=== PATIENT | male | born 1955 | race Caucasian/White ===

== ENCOUNTER → 2021-09-03 | Outpatient (CLI) | payer OTHER ==
[~2021-09-03] VITALS: Ht 15.2 cm; Wt 122.5 kg
[~2021-09-03] MED LIST: AMIO200T6 PO; APIX5TAB PO; ASPI-1197 PO; ATOR10 PO; ATOR40TA71 PO; HUM10VIA6 SQ; INVOK100TB PO; METF-446 PO; MULT-660 PO; OMEG300C3 PO; RAMI5CAP66 PO; TOPI25TA48 PO
== END | disposition home or self-care (01) ==
LOC: DTH 10:53
PROVIDERS: ATTEND Surgery
DX: E66.01 Morbid (severe) obesity due to excess calories (principal); G47.33 Obstructive sleep apnea (adult) (pediatric); M19.91 Primary osteoarthritis, unspecified site; E11.9 Type 2 diabetes mellitus without complications; E78.00 Pure hypercholesterolemia, unspecified; K21.9 Gastro-esophageal reflux disease without esophagitis
CPT/HCPCS: 97802

== ENCOUNTER → 2021-10-27 | Outpatient (CLI) | payer OTHER ==
[~2021-10-27] MED LIST changes: -AMIO200T6 PO; +AMIO200T68 PO
== END | disposition home or self-care (01) ==
LOC: DTH 09:27
PROVIDERS: ATTEND Surgery
DX: Z71.3 Dietary counseling and surveillance (principal); G47.33 Obstructive sleep apnea (adult) (pediatric); E78.00 Pure hypercholesterolemia, unspecified; E11.9 Type 2 diabetes mellitus without complications; K21.9 Gastro-esophageal reflux disease without esophagitis; I10 Essential (primary) hypertension; E66.01 Morbid (severe) obesity due to excess calories; Z68.41 Body mass index [BMI] 40.0-44.9, adult
CPT/HCPCS: 97803

== ENCOUNTER 2022-02-16 09:00 | Inpatient (IN) | payer MEDICARE ==
[~2022-02-16] VITALS: Ht 167.6 cm; Wt 103.9 kg
[~2022-02-16 09:00] MED LIST changes: -AMIO200T68 PO; -ATOR10 PO; -ATOR40TA71 PO; -INVOK100TB PO; -OMEG300C3 PO; -RAMI5CAP66 PO; -TOPI25TA48 PO
[2022-02-16 10:28] LABS: BASOPHILS % (AUTO) 0.2 % (0.0-5.0); EOSINOPHILS % (AUTO) 0.9 % (0.0-8.0); HEMATOCRIT 40.6 % (42-54); LYMPHOCYTES % (AUTO) 19.8 % (21.0-51.0); MEAN CORPUSCULAR HEMOGLOBIN 31.2 pg (27.0-33.0); MEAN CORPUSCULAR VOLUME 91.9 fL (79-99); NEUTROPHILS % (AUTO) 66.8 % (40.0-77.0); PLATELET COUNT (AUTO) 191 K/uL (130-400); RED BLOOD CELL COUNT(AUTO) 4.42 MIL/uL (4.50-6.20); RED CELL DISTRIBUTION WIDTH 12.7 % (11.0-15.5); WHITE BLOOD COUNT (AUTO) 6.6 K/uL (4.8-10.8)
[2022-02-16 10:41] LABS: CREATININE 0.9 mg/dL (0.5-1.5); POTASSIUM 4.2 mmol/L (3.5-5.1)
[2022-02-16] MEDS ORDERED: LACTATED RINGERS 1000ML 1,000 ML IV SCH (14:00)
[2022-02-17 10:20] VITALS: BP 158/80
[2022-02-17] MEDS ORDERED: ATOR-2 PO (10:57)
[2022-02-17] MEDS ORDERED: CHOL100034 PO (10:57)
[2022-02-17] MEDS ORDERED: DESV50TA10 PO (10:57)
[2022-02-17] MEDS ORDERED: AMIO200T44 PO (10:57)
[2022-02-17] MEDS ORDERED: KRIL1CAP19 PO (10:57)
[2022-02-17] MEDS ORDERED: METO-391 PO (10:59)
[2022-02-18] VITALS (27 sets, daily range): BP systolic 105–148; BP diastolic 45–75
[2022-02-18] MEDS: CEFOXITIN SODIUM 2 GM VIAL IVP SCH ×3 (06:00→11:48)
[2022-02-18] MEDS ORDERED: 0.9%NACL 1000ML 1,000 ML IV ONE (06:39)
[2022-02-18] MEDS ORDERED: SUCCINYLCHOLINE 200MG/10ML SYR ONE (06:46)
[2022-02-18] MEDS ORDERED: FENTANYL CITRATE PF 50 MCG/1 ML 2ML VIAL ONE (06:46)
[2022-02-18] MEDS ORDERED: ROCURONIUM 10MG/1ML SYR 10 MG/ML ML ONE ×2 (06:46→07:35)
[2022-02-18] MEDS ORDERED: DEXAMETHASONE SOD PHOSPHATE 10MG/ML 1ML VIAL ONE (06:46)
[2022-02-18] MEDS ORDERED: LIDOCAINE PF 100MG/5ML (2%) SYRINGE 5ML ONE (06:46)
[2022-02-18] MEDS ORDERED: PROPOFOL 10 MG/ML 20ML VIAL IV ONE (06:46)
[2022-02-18] MEDS ORDERED: ONDANSETRON 4MG INJ ONE ×2 (06:46→08:58)
[2022-02-18] MEDS ORDERED: MIDAZOLAM HCL 1 MG/ML 2ML VIAL ONE (06:47)
[2022-02-18] MEDS ORDERED: DEXMEDETOMIDINE HCL 200 MCG/2 ML VIAL IV ONE (06:54)
[2022-02-18] MEDS ORDERED: MAGNESIUM SULFATE 1 GM/2 ML VIAL ONE (06:55)
[2022-02-18] MEDS ORDERED: KETAMINE HCL 50MG/ML 10ML VIAL IJ ONE (06:55)
[2022-02-18] MEDS ORDERED: BUPIVACAINE/PF 0.5% 30ML VIAL ONE (06:58)
[2022-02-18] MEDS ORDERED: METHYLENE BLUE 5 MG/ML AMP ONE (06:58)
[2022-02-18] MEDS ORDERED: HEPARIN 5,000 UNIT VIAL ONE (07:03)
[2022-02-18] MEDS ORDERED: GLYCOPYRROLATE 1 MG/5 ML SYRINGE ONE ×2 (07:51→08:59)
[2022-02-18] MEDS ORDERED: ATROPINE 1MG SYG IVP ONE (07:52)
[2022-02-18] MEDS ORDERED: NEOSTIGMINE 5MG/5ML SYR IV ONE (09:00)
[2022-02-18] MEDS ORDERED: 0.9%NACL 10ML VIAL IVP PRN (09:30)
[2022-02-18] MEDS ORDERED: APAP/CODEINE 120/12MG 5ML PO PRN (09:30)
[2022-02-18] MEDS ORDERED: HYDROMORPHONE PCA 10 MG/50 ML 50 ML IV SCH (14:30)
[2022-02-18] MEDS ORDERED: MORPHINE 2 MG SYG IM PRN (17:00)
[2022-02-18] MEDS ORDERED: MEPERIDINE-PF 25 MG/ML SYG IV PRN (17:00)
[2022-02-18] MEDS ORDERED: MORPHINE 4 MG SYG IM PRN (17:00)
[2022-02-18] MEDS ORDERED: PROMETHAZINE HCL 25 MG/ML 1ML AMPULE IM PRN ×3 (17:00)
[2022-02-18] MEDS: METFORMIN HCL 500 MG TABLET PO SCH (17:00)
[2022-02-18] MEDS: METOPROLOL SUCCINATE 50 MG TAB.SR.24H PO SCH (20:19)
[2022-02-18] MEDS: [UNRECOGNIZED DRUG - OTHER] PO SCH (20:20)
[2022-02-18] MEDS: DHA PO SCH (20:20)
[2022-02-18] MEDS: PHOSPHO PO SCH (20:20)
[2022-02-18] MEDS: (Cholecalciferol (Vitamin D3) (Vitamin D3) 25 MCG) PO SCH (20:20)
[2022-02-18] MEDS: FAMOTIDINE 20MG VIAL IV SCH (20:20)
[2022-02-18] MEDS: AST PO SCH (20:20)
[2022-02-18] MEDS: EPA PO SCH (20:20)
[2022-02-18] MEDS: KRILL PO SCH (20:20)
[2022-02-18] MEDS ORDERED: HEPARIN 5,000 UNIT VIAL SQ SCH (21:00)
[2022-02-18] MEDS ORDERED: NON-FORMULARY MEDICATION 1 EACH (Metformin HCl 1,000 MG) PO SCH (21:00)
[2022-02-19 03:50] VITALS: BP 144/74
[2022-02-19 08:02] VITALS: BP 163/78
[2022-02-19] MEDS: PHOSPHO PO SCH (09:00)
[2022-02-19] MEDS ORDERED: ATORVASTATIN 40 MG TABLET PO SCH (09:00)
[2022-02-19] MEDS ORDERED: NON-FORMULARY MEDICATION 1 EACH (Atorvastatin Calcium 80 MG) PO SCH (09:00)
[2022-02-19] MEDS ORDERED: ASPIRIN 81MG CHEW TAB PO SCH (09:00)
[2022-02-19] MEDS: AST PO SCH (09:00)
[2022-02-19] MEDS ORDERED: APIXABAN 5 MG TABLET PO SCH (09:00)
[2022-02-19] MEDS ORDERED: MULTIVITAMIN TABLET PO SCH (09:00)
[2022-02-19] MEDS: [UNRECOGNIZED DRUG - OTHER] PO SCH (09:00)
[2022-02-19] MEDS: (Cholecalciferol (Vitamin D3) (Vitamin D3) 25 MCG) PO SCH (09:00)
[2022-02-19] MEDS: DHA PO SCH (09:00)
[2022-02-19] MEDS ORDERED: DESVENLAFAXINE 50 MG PO SCH (09:00)
[2022-02-19] MEDS ORDERED: NON-FORMULARY MEDICATION 1 EACH (Multivitamin (Multivitamins) 1 EACH) PO SCH (09:00)
[2022-02-19] MEDS ORDERED: AMIODARONE 200 MG TABLET PO SCH (09:00)
[2022-02-19] MEDS: EPA PO SCH (09:00)
[2022-02-19] MEDS: KRILL PO SCH (09:00)
[2022-02-19] MEDS: METOPROLOL SUCCINATE 50 MG TAB.SR.24H PO SCH (09:26)
[2022-02-19] MEDS: METFORMIN HCL 500 MG TABLET PO SCH (09:27)
[2022-02-19] MEDS: FAMOTIDINE 20MG VIAL IV SCH (09:30)
[2022-02-19 11:47] VITALS: BP 143/73
== END 2022-02-19 14:43 | disposition home or self-care (01) | DRG 621 ==
LOC: EDSTATUS 09:00 → DAHIP 02-18 05:55 → 3AH 02-18 10:35
PROVIDERS: ADMIT Surgery; ATTEND Surgery
PROC: 3E0T3BZ Introduction of Anesthetic Agent into Peripheral Nerves and Plexi, Percutaneous Approach (ICD-10-PCS; 2022-02-18)
PROC: 0DB64Z3 Excision of Stomach, Percutaneous Endoscopic Approach, Vertical (ICD-10-PCS; principal; 2022-02-18 07:00)
DX: E66.01 Morbid (severe) obesity due to excess calories (principal); Z68.37 Body mass index [BMI] 37.0-37.9, adult; K66.0 Peritoneal adhesions (postprocedural) (postinfection); Z20.822 Contact with and (suspected) exposure to COVID-19; E78.5 Hyperlipidemia, unspecified; I25.10 Atherosclerotic heart disease of native coronary artery without angina pectoris; E11.9 Type 2 diabetes mellitus without complications; F32.9 Major depressive disorder, single episode, unspecified; G47.30 Sleep apnea, unspecified; I48.91 Unspecified atrial fibrillation; Z86.73 Personal history of transient ischemic attack (TIA), and cerebral infarction without residual deficits
CPT/HCPCS: 36415; 80048; 82948; 85025; 87635; 88307; 93005; 94660; 97039; G0378; J0330; J0461; J0694; J1100; J1170; J1644; J1815; J2001; J2250; J2405; J2704; J2710; J3010; J3475; J3490; J7030; Q9968

== ENCOUNTER → 2023-01-13 | Outpatient (CLI) | payer MEDICARE ==
[~2023-01-13] MED LIST changes: +AMIO200T44 PO; +ATOR-2 PO; +CHOL100034 PO; +DESV50TA10 PO; -HUM10VIA6 SQ; +KRIL1CAP19 PO; +METO-391 PO
== END | disposition home or self-care (01) ==
LOC: RAH 13:40
PROVIDERS: ATTEND Family Medicine
DX: N63.41 Unspecified lump in right breast, subareolar (principal)
CPT/HCPCS: 76641; 77066

== ENCOUNTER → 2023-07-28 | Outpatient (CLI) | payer MEDICARE | END | disposition home or self-care (01) | LOC: RAH 08:51 | PROVIDERS: ATTEND Family Medicine | DX: N18.31 Chronic kidney disease, stage 3a (principal); Z90.49 Acquired absence of other specified parts of digestive tract | CPT/HCPCS: 76700 ==

== ENCOUNTER 2023-09-16 09:23 | Day surgery (SDC) | payer MEDICARE ==
[2023-09-15 10:38] LABS: BASOPHILS # (AUTO) 0.02 K/uL (0.00-0.20); BASOPHILS % (AUTO) 0.3 % (0.0-5.0); EOSINOPHILS # (AUTO) 0.18 K/uL (0.00-0.70); HEMATOCRIT 43.1 % (42-54); IMMATURE GRANULOCYTE ABSOLUTE 0.02 K/uL (0-1); LYMPHOCYTES # (AUTO) 1.2 K/uL (1.0-4.8); LYMPHOCYTES % (AUTO) 20.4 % (21.0-51.0); MEAN CORPUSCULAR HGB CONC 33.2 g/dL (32.0-36.0); MEAN CORPUSCULAR VOLUME 96.4 fL (79-99); MONOCYTES # (AUTO) 0.6 K/uL (0.1-1.0); MONOCYTES % (AUTO) 10.1 % (3.0-13.0); NEUTROPHILS # (AUTO) 3.9 K/uL (1.8-7.7); NEUTROPHILS % (AUTO) 65.9 % (40.0-77.0); PLATELET COUNT (AUTO) 173 K/uL (130-400); RED BLOOD CELL COUNT(AUTO) 4.47 MIL/uL (4.50-6.20); WHITE BLOOD COUNT (AUTO) 5.9 K/uL (4.8-10.8)
[2023-09-15 10:47] LABS: CREATININE 1.1 mg/dL (0.5-1.5)
[2023-09-15 10:48] LABS: INR 0.98 (0.85-1.15); PROTHROMBIN TIME 11.4 SEC (9.6-11.6)
[2023-09-15 10:49] LABS: PARTIAL THROMBOPLASTIN TIME 27.2 SEC (26.3-35.5)
[2023-09-15 11:10] VITALS: BP 170/89; PULSE 52; RESP 13
[~2023-09-16] VITALS: Ht 167.6 cm; Wt 99.2 kg
[2023-09-16] VITALS (9 sets, daily range): BP systolic 137–154; BP diastolic 80–95; PULSE 41–64; RESP 14–21
[~2023-09-16 09:23] MED LIST changes: -ASPI-1197 PO; -CHOL100034 PO; -DESV50TA10 PO; +INSU100I35 SQ; -KRIL1CAP19 PO; +METF-444 PO; -METF-446 PO; -METO-391 PO; +METO-408 PO
[2023-09-16] MEDS ORDERED: BUPIVACAINE/PF 0.25% 30ML VIAL IJ ONE (09:54)
[2023-09-16] MEDS ORDERED: LIDOCAINE HCL 1% MDV 50ML VIAL ONE (09:54)
[2023-09-16] MEDS ORDERED: IOHEXOL-350 50ML VIAL IV ONE (09:54)
[2023-09-16] MEDS ORDERED: FENTANYL CITRATE PF 50 MCG/1 ML 2ML VIAL ONE (09:54)
[2023-09-16] MEDS ORDERED: CEFAZOLIN SODIUM 1 GM VIAL ONE (09:54)
[2023-09-16] MEDS ORDERED: MIDAZOLAM HCL 1 MG/ML 2ML VIAL ONE ×2 (09:54→11:51)
[2023-09-16] MEDS ORDERED: 0.9%NACL 1000ML 1,000 ML IV ONE (10:16)
[2023-09-16] MEDS ORDERED: ACETAMINOPHEN WITH CODEINE 1 TAB TAB PO PRN ×2 (12:00)
[2023-09-16] MEDS ORDERED: DEXTROSE 50%-WATER 50 ML DISP.SYRIN IV PRN (12:00)
[2023-09-16] MEDS ORDERED: INSULIN HUMULIN R 100 UNIT/ML 3ML SQ SCH (16:30)
== END 2023-09-16 17:00 | disposition home or self-care (01) ==
LOC: DAH 09:23
PROVIDERS: ATTEND Internal Medicine Interventional Cardiology
DX: I48.11 Longstanding persistent atrial fibrillation (principal); I10 Essential (primary) hypertension; I25.10 Atherosclerotic heart disease of native coronary artery without angina pectoris; I73.9 Peripheral vascular disease, unspecified; E13.42 Other specified diabetes mellitus with diabetic polyneuropathy; E13.59 Other specified diabetes mellitus with other circulatory complications; E66.01 Morbid (severe) obesity due to excess calories; Z68.35 Body mass index [BMI] 35.0-35.9, adult; Z82.49 Family history of ischemic heart disease and other diseases of the circulatory system; Z85.818 Personal history of malignant neoplasm of other sites of lip, oral cavity, and pharynx; Z83.3 Family history of diabetes mellitus; Z82.5 Family history of asthma and other chronic lower respiratory diseases; Z79.84 Long term (current) use of oral hypoglycemic drugs; Z79.4 Long term (current) use of insulin; Z79.899 Other long term (current) drug therapy
CPT/HCPCS: 80048; 85025; 85610; 85730; 36415; 93005 ×2; 33208; 33286; 82948 ×2; 71045; C1785; C1898 ×2; C1894; J3010; J0690; J7030; J0665; J2250 ×2; J3490; A4215; A4222; A4221; A4663; A4216; A4606; A4223 ×3; 99156; 99157; Q9967

== ENCOUNTER → 2024-03-28 | Outpatient (CLI) | payer MEDICARE ==
[~2024-03-28] MED LIST changes: +ALBUTEROL 0.083% 2.5 MG/3 ML INH IH ONE
== END | disposition home or self-care (01) ==
LOC: RESP 13:09
PROVIDERS: ATTEND Internal Medicine Interventional Cardiology
DX: J98.8 Other specified respiratory disorders (principal); R06.09 Other forms of dyspnea; R06.02 Shortness of breath; J45.909 Unspecified asthma, uncomplicated
CPT/HCPCS: 94060; 94727; 94729